=== PATIENT | male | born 1940 | race Caucasian/White ===

== ENCOUNTER → 2020-01-27 08:55 | Outpatient (BNVA) | payer MEDICARE, OTHER, SELFPAY | PROVIDERS: Family Provider Family Medicine; Referring Provider Nurse Practitioner Family; Visit Provider Specialist | DX: M25.552 Pain in left hip (principal); Z96.641 Presence of right artificial hip joint | CPT/HCPCS: 73502 ==

== ENCOUNTER 2022-05-31 19:08 | Inpatient (IN) | payer MEDICARE, OTHER, SELFPAY ==
--- NOTE | 2022-05-31 19:21 | ECG_ITS ---
[facility] Test Date: 2022-05-31 Pat Name: Chet Belle Department: Room: Gender: Male Planner Chief: : 1940 Requested By: Julio C Gilmore Order Number: [id number] Reji MD: Anil Hartman M.D. Measurements Intervals [place] Rate: 55 P: 31 NJ: 202 QRS: 65 QRSD: 86 T: 76 QT: 388 QTc: 374 Interpretive Statements SINUS BRADYCARDIA ST ELEVATION, CONSIDER ANTERIOR INJURY [MARKED ST ELEVATION W/O NORMALLY INFLECTED T-WAVE IN V2-V5] ACUTE [place] No previous ECG available for comparison Electronically Signed On 06-03-2022 17:56:15 CDT by Anil Hartman M.D. [email or web address]
--- NOTE | 2022-05-31 19:21 | W.ED.CHESTPA ---
HPI - Chest Pain General: Stated Complaint: CP Time Seen by Provider: 05/31/22 19:20 History of Present Illness: Mr. Belle is an 82-year-old gentleman without significant past medical history presents to the emergency department due to chest pain. Onset of symptoms at rest approximately 4 PM. He reports substernal pain with radiation to bilateral shoulders associated with mild nausea and cold sweats. Denies history of similar. Otherwise has been at baseline health. Intensity symptoms moderate to severe. Course has persisted. No other specific changes in health, exacerbating, or alleviating factors identified. Onset (ago): hour(s) Timing of current episode: constant Prior episodes: No Onset: during rest Pain location: substernal Pain radiation: left shoulder, left scapula, right shoulder and right scapula Severity: severe Quality: heaviness Associated symptoms: Reports diaphoresis and nausea Review of Systems General: Reports: 10 or more systems reviewed and unremarkable except in HPI and below Const: Reports: diaphoresis GI: Reports: nausea PFSH ED PFSH: Medical History (Updated 06/03/22 @ 00:01 by ) ST elevation (STEMI) myocardial infarction Surgical History History of total right hip replacement Social History Smoking and tobacco status: never smoked Alcohol intake: never Physical Exam Const: COMMON NORMALS: alert GENERAL APPEARANCE: cooperative, well developed and ill appearing (Mildly) HENMT: COMMON NORMALS: normocephalic and atraumatic HEAD & SCALP: normocephalic and atraumatic THROAT: posterior oropharynx normal Eye: COMMON NORMALS: conjunctivae normal CONJUNCTIVA: Yes conjunctivae normal SCLERA: sclerae normal Neck/C-Spine: COMMON NORMALS: supple GENERAL: Yes trachea midline Resp: COMMON NORMALS: normal respiratory effort and clear to auscultation bilaterally EFFORT & INSPECTION: Yes able to speak in complete sentences AUSCULTATION: clear to auscultation bilaterally Cardio: COMMON NORMALS: regular rate and regular rhythm RATE: regular rate RHYTHM: regular rhythm GI: COMMON NORMALS: Soft to palpation PALPATION: Yes Soft to palpation and No Tenderness to palpation present (GI) Extremity: GENERAL: Yes normal exam except as noted and No edema Neuro: COMMON NORMALS: moves all extremities SENSORIUM/ORIENTATION: Yes alert and No Orientation impaired Psych: COMMON NORMALS: mental status grossly normal and Normal thought process present THOUGHT PROCESS: Normal thought process present Course Vital Signs: Vital signs: Vital Signs Temperature 98.4 F 06/02/22 08:00 Pulse Rate 61 06/02/22 11:40 Respiratory Rate 20 H 06/02/22 11:40 Blood Pressure 132/74 06/02/22 11:40 Pulse Oximetry 92 06/02/22 11:40 MDM - Chest Pain Medical Decision Making 82-year-old gentleman without significant past medical history presenting to the emergency department with chest pain. Initial EKG with mild ST elevation though there is baseline wander. Repeat also concerning for STEMI. STEMI activation called and patient taken to Gravity Prospecting Supervisor with cardiology. STEMI orderset ordered. Medical Records I reviewed the patient's medical records. Lab Data I reviewed the patient's lab results. : 06/02/22 05:30 06/02/22 05:30 Radiology Impressions Chest X-Ray 05/31/22 23:27 IMPRESSION: Mild left basilar atelectasis. No confluent infiltrates in the lungs. Laboratory Results WBC 9.9 10^3/uL (4.0-10.0) 05/31/22 19:25 RBC 5.10 10^6/uL (4.1-5.3) 05/31/22 19:25 Hgb 15.8 g/dL (11.7-16.6) 05/31/22 19:25 Hct 46.1 % (42.0-52.0) 05/31/22 19:25 MCV 90.4 fl (80-94) 05/31/22 19:25 MCH 31.0 pg (28.0-34.0) 05/31/22 19:25 MCHC 34.3 g/dL (30.0-36.0) 05/31/22 19:25 RDW 13.2 % (12.1-15.1) 05/31/22 19:25 Plt Count 206 10^3/cmm (130-400) 05/31/22 19:25 MPV 10.6 fL (7.4-10.4) H 05/31/22 19:25 Neut % (Auto) 49.6 % 05/31/22 19:25 Lymph % (Auto) 34.3 % 05/31/22 19:25 Swisher % (Auto) 9.9 % 05/31/22 19:25 Eos % (Auto) 5.2 % 05/31/22 19:25 Baso % (Auto) 0.4 % 05/31/22 19:25 Neut # (Auto) 4.91 10^3/uL (1.8-7.7) 05/31/22 19:25 Lymph # (Auto) 3.4 10^3/uL (0.8-4.8) 05/31/22 19:25 Swisher # (Auto) 1.0 10^3/uL (0.2-0.9) H 05/31/22 19:25 Eos # (Auto) 0.5 10^3/uL (0.0-0.8) 05/31/22 19:25 Baso # (Auto) 0.0 10^3/uL (0.0-0.1) 05/31/22 19:25 Nucleated RBC % (auto) 0 % 05/31/22:25 Nucleated RBCs # 0.0 /100WBC 05/31/22 19:25 PT 13.80 SECONDS (12.1-14.9) 05/31/22 19:25 INR 1.03 (0.8-1.2) 05/31/22 19:25 APTT 29.7 SECONDS (23.9-36.7) 05/31/22 19:25 Sodium 141 mmol/L (136-145) 05/31/22 19:25 Potassium 3.5 mmol/L (3.5-5.1) 05/31/22 19:25 Chloride 103 mmol/L (98-107) 05/31/22 19:25 Carbon Dioxide 30 mmol/L (22-29) H 05/31/22 19:25 Anion Gap 11.5 (5-19) 05/31/22 19:25 BUN 25 mg/dL (8-23) H 05/31/22 19:25 Creatinine 0.7 mg/dL (0.7-1.2) 05/31/22 19:25 GFR Calculation Not Reportable 05/31/22 19:25 Glucose 160 mg/dL (65-115) H 05/31/22 19:25 Calculated Osmolality 300 mOsm/kg (285-295) H 05/31/22 19:25 Calcium 9.2 mg/dL (8.5-10.5) 05/31/22 19:25 Total Bilirubin 0.5 mg/dL (0.15-1.2) 05/31/22 19:25 AST 20 U/L (0-40) 05/31/22 19:25 ALT 16 U/L (0-41) 05/31/22 19:25 Alkaline Phosphatase 95 IU/L (40-130) 05/31/22 19:25 Troponin T Baseline 15 ng/L (0-15) 05/31/22 19:25 NT-Pro-B Natriuret Pep 97 pg/mL (0-450) 05/31/22 19:25 Total Protein 6.9 g/dL (6.6-8.7) 05/31/22 19:25 Albumin 4.2 g/dL (3.5-5.2) 05/31/22 19:25 Globulin 2.7 g/dL (1.3-4.6) 05/31/22 19:25 Lipase 25 U/L (13-60) 05/31/22 19:25 Critical Care Time Critical Care Time: Critical Care Time: Yes Total Critical Care Time: 35 Attestation: Due to a high probability of clinically significant, possibly life threatening deterioration, the patient required my highest level of attention and preparedness to intervene emergently and I personally spent this critical care time directly and personally managing the patient. This critical care time included obtaining a history; examining the patient; pulse oximetry; ordering and review of laboratory and imaging studies; arranging urgent treatment with development of a management plan; evaluation of patient's response to treatment; frequent reassessment; and, discussions with other providers as applicable. It was exclusive of separately billable procedures. Primary system involved is cardiac Discharge Plan Discharge Patient Disposition: Admitted As Inpatient Admit Provider: Anil Hartman Clinical Impression: ST elevation (STEMI) myocardial infarction Condition: Stable Discharge Diet: Cardiac Discharge Activity: Increase activity as tolerated Coding Level of Care Code ED Studio Owner for Radha Fwd Exam Comprehensive
[2022-05-31 19:23] VITALS: BP 159/86; PULSE 64; RESP 18; TEMP 36.6; O2SAT 96; BMI 25.7
[2022-05-31] MEDS: sodium chloride 0.9% 1,000 ML 999 ML IV (19:30)
[2022-05-31 19:31] LABS: Basophils % 0.4 %; Eosinophils # 0.5 10^3/uL (0.0-0.8); Eosinophils % 5.2 %; Hematocrit 46.1 % (42.0-52.0); Hemoglobin 15.8 g/dL (11.7-16.6); Lymphocytes # 3.4 10^3/uL (0.8-4.8); Lymphocytes % 34.3 %; Mean Corpuscular HGB Conc 34.3 g/dL (30.0-36.0); Mean Corpuscular Volume 90.4 fl (80-94); Mean Platelet Volume 10.6 fL (7.4-10.4); Monocytes % 9.9 %; Neutrophils # 4.91 10^3/uL (1.8-7.7); Neutrophils % 49.6 %; Nucleated Red Blood Cells % 0 %; Platelet Count 206 10^3/cmm (130-400); Red Cell Distribution Width 13.2 % (12.1-15.1); White Blood Count 9.9 10^3/uL (4.0-10.0)
[2022-05-31] MEDS: aspirin 325 mg Tablet PO (19:32)
[2022-05-31] MEDS: heparin 5,000 unit/mL INJ 1 mL 4000 UNIT IVP (19:32)
[2022-05-31] MEDS: clopidogrel 300 mg Tablet 600 MG PO (19:35)
--- NOTE | 2022-05-31 19:35 | XACV_ITS ---
Exam Room: 2 Ht: 188 cm Wt: 91 kg BSA: 2.18 m2 Gender: Male : 1940 Any Known Allergies: No known allergies Exam Priority: Routine Indication(s): - Inferior wall NH Procedure(s): Procedure Description: Diagnostic procedure Procedure Description: PCI procedure Procedure Description: Left Heart Catheterization Procedure Description: Coronary IVUS Procedure Description: Drug Eluting Coronary Stent Procedure Description: PTCA Procedure Description: Miscellaneous Procedure Description: ACT Procedure Description: Coronary Angiography Diagnostic Cath Status: Emergency Diagnostic Findings * Proximal Left Anterior Descending: total thrombotic occlusion, LACEY: 0 flow. * INDICATION: 82 year old male with no significant prior cardiac history has presented with about 3 hours of substernal chest pain. It is radiating to the shoulder blades. Says it is severe. EKG performed in the emergency room showed borderline ST elevation in anteroseptal and inferior leads. Grid Operator was emergently activated and patient brought to the Grid Operator for coronary angiogram with possible percutaneous coronary intervention. * Left Main has no significant disease. * Circumflex has no significant disease. * Mid Right Coronary Artery: Critical 99% stenosis, LACEY: 2 flow. * Coronary angiography shows right dominance. PCI Status: Emergency PCI Indication: Immediate PCI for STEMI Interventional Findings * Procedure detail: We engaged the left main artery with XB 3.0 guide catheter. IV heparin was administered to maintain ACT above 250 S. We used 0.014 run-through guidewire to cross total thrombotic occlusion of proximal LAD and was placed in the distal vessel. Proximal vessel was predilated with 2.5 x 15 mm semicompliant balloon. This was followed by placement of 3.0 x 38 mm resolute Peter drug-eluting stent. After stent deployment, thrombus extension was seen in mid vessel. A second stent was placed measuring 2.75 x 22 mm overlapping with the proximal stent. There was still haziness noted at the distal edge of the stent. It was likely dissection vs thrombus. Balloon angioplasty was performed with 2.5 x 15 mm semicompliant balloon. However it did not resolve. And a third stent measuring 2.5 x 15 mm resolute Peter drug-eluting stent. Proximal stent was postdilated with 3.25 x 12 mm NC balloon. At this time final angiogram was performed that showed excellent stent expansion, no residual stenosis and LACEY-3 flow. After scientologist of the blood flow in LAD, TETRYL DISSOLVER OPERATOR of diagonal artery was seen. Wiring was unsuccessful. However given collateral blood supply we decided to medically treated. We then turned our attention to the mid RCA stenosis. JR4 guide catheter was used to engage RCA. Run-through guidewire was used to cross critical stenosis. It was predilated with 2.5 x 15 mm noncompliant balloon. We then placed 3.5 x 22 mm resolute Peter drug-eluting stent. At this time final angiogram was performed that showed excellent stent expansion, no residual stenosis and LACEY-3 flow. Guidewire and guide catheter were removed and patient left the Grid Operator in a stable condition.. * Proximal Left Anterior Descendin% stenosis treated with a AB TREK 2.50X15 RX BALLOON, and MDT R PETER 3.0X38 CHERELLE. 0% residual stenosis, LACEY: 3 flow. * Mid Left Anterior Descendin% stenosis treated with a MDT R PETER 2.75X22 CHERELLE, and MDT NC EUPHORA RX 3.06Z61OC BALLOON. 0% residual stenosis, LACEY: 3 flow. * Distal Left Anterior Descendin% stenosis treated with a AB TREK 2.50X15 RX BALLOON, and MDT R PETER 2.5X15 CHERELLE. 0% residual stenosis, LACEY: 3 flow. * Mid Right Coronary Artery: 99% stenosis treated with a AB TREK 2.50X15 RX BALLOON, and MDT R PETER 3.5X22 CHERELLE. 0% residual stenosis, LACEY: 3 flow. Conclusions 1. Total thrombotic occlusion of proximal LAD s/p successful revascularization with CHERELLE x3. Successful revascularization of mid RCA with CHERELLE x1.. 2. Proximal Left Anterior Descending was treated with a Balloon, and Drug Eluting Stent. 3. Mid Left Anterior Descending was treated with a Drug Eluting Stent, and Balloon. 4. Distal Left Anterior Descending was treated with a Balloon, and Drug Eluting Stent. 5. Mid Right Coronary Artery was treated with a Balloon, and Drug Eluting Stent. Recommendations * Transfer to ICU. * Aspirin and Plavix for at least 1 year. * High intensity statin therapy. * Beta-marla and lisinopril. * Order echocardiogram. * Outpatient cardiology follow-up in 4-week. Interventional RX Recommendation: PCI w/o planned CABG Diagnostic RX Recommendation: PCI w/o planned CABG Anticoagulation: Heparin Pressures Phase:Rest AO : 153 / 86 ( 117 ) @ 4:15:47 PM 127 / 86 ( 106 ) @ 4:15:47 PM 110 / 70 ( 89 ) @ 4:15:47 PM 142 / 95 ( 118 ) @ 4:15:47 PM 92 / 58 ( 75 ) @ 4:15:47 PM 118 / 70 ( 90 ) @ 4:15:47 PM Clinical Evaluation EBL: 5mL-10mL Procedural Details Accurate & Complete Informed Consent: N/A Emergent; Informed Consent not obtained due to time critical life threat. Inpatient/Outpatient History & Physical on Chart: N/A Emergent; Informed Consent not obtained due to time critical life threat. If H&P is completed, is and addenduem needed: N/A Emergent; Informed Consent not obtained due to time critical life threat; If yes, is the addendum complete: N/A Emergent; Informed Consent not obtained due to time critical life threat. Visualize and Verify Site with Patient/Guarantor: N/A. Relevant Radiology Images available: N/A. Pre-op teaching completed and patient verbalized understanding. The risks, benefits, and alternatives of sedation and/or procedure were discussed by physician. The patient agrees to continue. Procedure started. [facility] Clinical Fraility Score: 3: Managing Well. Grid Operator Indications: ACS <= 24 hours. Chest Pain Symptom Assessment: Typical Angina Symptoms. Cardiovascular Instability: Yes, if yes, Persistant Ischemic Symptoms. Correct patient, site and procedure confirmed by cath team. Current diagnosis: STEMI. PERRLA. Strong, equal hand home health attendant bilaterally. Lungs clear x 5 lobes. IV Site on Arrival: 18 gauge in the right anticubital. IV Fluids: 0.9% NaCl at KVO. 200 mL infused prior to rn cardiac cath. Pre Procedural Pulses: bilateral radial was 2+. Oxygen started at 2liters/min via nasal canula. right groin was prepped with chloroprep then draped in the usual sterile fashion. right radial was prepped with chloroprep then draped in the usual sterile fashion. Physician notified. Baseline sample Acquired. HR: 65 BPM. Physician arrived. Physician scrubbed in. Immediate Pre-Procedure Time Out. Correct Patient: Yes; Correct Procedure: Yes; Correct Site: Yes; Correct Patient Position: Yes; Correct Supplies: Yes; Dried Flammable Prep: Yes; Blood Products Available: N/A;. Lidocaine 1% infiltrated to the right radial. Dada Del Cid RN, DIAPER MACHINE TENDER was relieved by Nisha Austin RN, DIAPER MACHINE TENDER as monitoring person. Arterial access obtained. A 5 equatorial guinean TIG catheter in over the standard wire. Standard wire out, exchange glidewire in. Multiple views taken of left coronary artery. Catheter removed over the exchange wire. 6 equatorial guinean XB 3.5 guide catheter was inserted over the wire. Runthrough guidewire was advanced through the guide catheter to lesion in the prox LAD. Inflation number : 1 A AB TREK 2.50X15 RX BALLOON was prepped and advanced across the Prox LAD , then inflated to 12 LAURIE for 0:18 seconds. Inflation number: 2 The AB TREK 2.50X15 RX BALLOON was reinflated across the Prox LAD, to 12 LAURIE for 0:12 seconds. Current Diagnosis : STEMI. Balloon out. Results checked. Inflation Number : 3 A VIKY Flores PETER 3.0X38 CHERELLE -Lot Number# [id number] was prepped and advanced across the Prox LAD. The stent was deployed at 12 LAURIE for 0:25 seconds. Exp. 2025-01-19. Stent balloon out over wire. Results checked. Inflation Number : 1 A MDT R PETER 2.75X22 CHERELLE -Lot Number# [id number] prepped and advanced across the Mid LAD. The stent was deployed at 12 LAURIE for 0:27 seconds. Exp. 2024-10-25. Stent balloon out over wire. Results checked. [place] guidewire was advanced through the guide catheter to lesion in the mid LAD. PCI Indication : Immediate PCI for STEMI. [place] wire out. IVUS Catheter in. IVUS performed. ACT drawn. Results 257 seconds. Therapeutic limits - pre-heparin administration 90-150 seconds and monitoring heparin during a vascular procedure >250 seconds. IVUS catherer out. Industrial Maintenance Mechanic 50 guidewire was advanced through the guide catheter to lesion in the mid LAD. Industrial Maintenance Mechanic 50 guidewire out. Inflation number : 2 A MDT NC EUPHORA RX 3.99M62AU BALLOON was prepped and advanced across the Mid LAD , then inflated to 12 LAURIE for 0:09 seconds. Inflation number: 3 The MDT NC EUPHORA RX 3.12H95VO BALLOON was reinflated across the Mid LAD, to 12 LAURIE for 0:22 seconds. Inflation number: 4 The MDT NC EUPHORA RX 3.23K83AW BALLOON was reinflated across the Mid LAD, to 14 LAURIE for 0:15 seconds. Balloon out. Results checked. Inflation number : 1 A AB TREK 2.50X15 RX BALLOON was prepped and advanced across the Dist LAD , then inflated to 8 LAURIE for 0:10 seconds. Balloon out. Results checked. Runthrough guidewire pulled back, cine performed. Inflation Number : 2 A MDT R PETER 2.5X15 CHERELLE -Lot Number# [id number] was prepped and advanced across the Dist LAD. The stent was deployed at 12 LAURIE for 0:28 seconds. Exp.. Stent balloon out over wire. Runthrough guidewire pulled back, cine performed. Wire out. Guide catheter out over the exchange glidewire. A 5 equatorial guinean TIG catheter in over the exchange glidewire. Cine of the LCA performed. Catheter redirected to the RCA. Multiple views taken of right coronary artery. 6 equatorial guinean JR 4 guide catheter was inserted over the wire. [place] guidewire was advanced through the guide catheter to lesion in the mid RCA. Inflation number : 1 A AB TREK 2.50X15 RX BALLOON was prepped and advanced across the Mid RCA , then inflated to 12 LAURIE for 0:22 seconds. Balloon out. Inflation Number : 2 A VIKY Flores PETER 3.5X22 CHERELLE -Lot Number# [id number] was prepped and advanced across the Mid RCA. The stent was deployed at 12 LAURIE for 0:29 seconds. Exp. 2024-11-22. Stent balloon out over wire. Results checked. Wire out. Guide catheter out. Dr. Hartman scrubbed out. ACT drawn. Results 249 seconds. Therapeutic limits - pre-heparin administration 90-150 seconds and monitoring heparin during a vascular procedure >250 seconds. A TR Band was successful obtaining hemostatsis at the Right Radial artery insertion site. TR band placed. Hemostasis obtained. Post Procedure: Pulses reassessed and unchanged. PERRLA. Strong, equal hand home health attendant bilaterally. No VTE prophylaxis required. Complications: none. Post-op diagnosis: PCI of the Prox, Mid, Distal LAD, and Mid RCA. Medication's Wasted: Lidocaine 1% = 6 mL. Medication's Wasted: Nitro = 49.4 mg. Medication's Wasted: Heparin = 4000 units. Total IV fluids: 52 mL. PCI Indication: STEMI. Estimated blood loss: 5mL-10mL. Responsiveness - Normal response to verbal stimuli; alert and oriented, PERRLA. Airway - Unaffected, no intervention required; spontaneous ventilation. Circulation: W/N/L, pulses unchanged. Nausea/Vomiting: No. Procedure completed. Patient transferred by bed to ICU. Vital chart was stopped. Access Site Site: Right Radial artery Sheath Size: 6 Fr Hemostasis Method: TR Band Hemostasis Success: Successful Procedure Medications Start: 7:52 PM Stop: 7:52 PM Medication: Versed Amount: 1 mg Route: I.V. Start: 7:52 PM Stop: 7:52 PM Medication: Fentanyl Amount: 50 mcg Route: I.V. Start: 7:55 PM Stop: 7:55 PM Medication: Heparin Amount: 5000 units Route: I.V. Start: 8:07 PM Stop: 8:07 PM Medication: Versed Amount: 1 mg Route: I.V. Start: 8:08 PM Stop: 8:08 PM Medication: Versed Amount: 1 mg Route: I.V. Start: 8:15 PM Stop: 8:15 PM Medication: Fentanyl Amount: 50 mcg Route: I.V. Start: 8:18 PM Stop: 8:18 PM Medication: Heparin Amount: 1000 units Route: I.V. Start: 8:27 PM Stop: 8:27 PM Medication: Versed Amount: 1 mg Route: I.V. Start: 8:28 PM Stop: 8:28 PM Medication: Heparin Amount: 2000 units Route: I.V. Start: 8:33 PM Stop: 8:33 PM Medication: Aggrastat 12.5 mg/250 mL Amount: 45 ml Route: I.V. bolus Start: 8:33 PM Stop: 8:33 PM Medication: Aggrastat 12.5 mg/250 mL Amount: 16.4 ml/hr Route: I.V. bolus Start: 8:34 PM Stop: 8:34 PM Medication: Fentanyl Amount: 50 mcg Route: I.V. Start: 8:36 PM Stop: 8:36 PM Medication: Nitrogylcerin Amount: 200 mcg Route: I.C. Start: 8:42 PM Stop: 8:42 PM Medication: Versed Amount: 1 mg Route: I.V. Start: 8:55 PM Stop: 8:55 PM Medication: Heparin Amount: 2000 units Route: I.V. Start: 9:00 PM Stop: 9:00 PM Medication: Nitrogylcerin Amount: 200 mcg Route: I.C. Start: 9:03 PM Stop: 9:03 PM Medication: Nitrogylcerin Amount: 200 mcg Route: I.C. Start: 9:08 PM Stop: 9:08 PM Medication: Heparin Amount: 2000 units Route: I.V. I, the attending physician, have reviewed and verified all procedure medications. Yes, all medications given per verbal order History/Risk Factors Hypertension: No Dyslipidemia: No Peripheral Arterial Disease (PAD): No Myocardial Infarction (NH): No Obesity: No Renal Disease: No Tobacco Use: Never Prior Interventions PCI: No CABG: No Valve Surgery: No Report Signatures Finalized by Anil Hartman MD on 06/11/2022 11:21 AM
--- NOTE | 2022-05-31 19:40 | PC.NURSE ---
patient left ER for director of cardiac cath lab 1938.
--- NOTE | 2022-05-31 19:45 | PM.HP ---
Providers/Chief Complaint Admitting Physician: Anil Hartman MD Chief Complaint: CP History of Present Illness Chet Belle is a 82 year old male with no significant prior cardiac history has presented with about 3 hours of substernal chest pain. It is radiating to the shoulder blades. Says it is severe. EKG performed in the emergency room showed borderline ST elevation in anteroseptal and inferior leads. Payroll Services Analyst was emergently activated and patient brought to the Payroll Services Analyst for coronary angiogram with possible percutaneous coronary intervention. He has proximal LAD was occluded. He underwent successful revascularization with CHERELLE x3. RCA had mid vessel critical 99% stenosis and had PCI with CHERELLE x1. Patient left the Payroll Services Analyst in a stable condition. Review of Systems General: Reports: 10 or more systems reviewed and unremarkable except in HPI and below Narrative: CONSTITUTIONAL: No fever chills weight loss or gain or night sweats. [] HEENT: Normocephalic, atraumatic.[] RESPIRATORY: No cough, sputum, hemoptysis or wheezing.[] CARDIOVASCULAR: Has chest pain and shortness of breath. GI: no nausea vomiting diarrhea. [] STAFF PSYCHIATRIST: No numbness, tingling, weakness or loss of function in any part of the body. [] MUSCULOSKELETAL: No knee or joint pain or rashes. [] Medications/Allergies Home Medications Medication Instructions Recorded Confirmed Last Taken Type omeprazole 20 mg capsule,delayed 20 mg PO DAILY 01/27/20 01/27/20 Unknown History release sulindac 150 mg tablet 150 mg PO BID 01/27/20 01/27/20 Unknown History tramadol 50 mg tablet 50 mg PO Q8H PRN 01/27/20 01/27/20 Unknown History Allergies Allergy/AdvReac Type Severity Reaction Status Date / Time No Known Allergies Allergy Unverified 01/27/20 08:48 PFSH Acute PFSH: Surgical History History of total right hip replacement Social History Smoking and tobacco status: never smoked Alcohol intake: never Vitals/I&O/Wt Last Vital Signs Temp 97.8 F 05/31/22 19:23 Pulse 64 05/31/22 19:23 Resp 18 05/31/22 19:23 BP 159/86 05/31/22 19:23 Pulse Ox 96 05/31/22 19:23 Weight last 48 hrs Weight 200 lb Physical Exam Narrative: GENERAL: Patient is alert, awake and oriented x3. [] NECK: No jugular vein distension. [] HEENT: No cyanosis. No icterus. No pallor. [] HEART: Regular S1 and S2. No murmur, rub or gallop. [] LUNGS: Clear to auscultate bilaterally. [] ABDOMEN: Soft, nontender and nondistended. Positive bowel sounds. No guarding, rebound or tenderness. [] CENTRAL NERVOUS SYSTEM: Grossly nonfocal. [] EXTREMITIES: Lower extremities with no edema bilaterally. Pulses palpable in the lower extremities, both dorsalis pedis and posterior tibial. [] Data : 05/31/22 19:25 05/31/22 19:25 A&P Assessment and plan (1) ST elevation (STEMI) myocardial infarction: Status: Acute Plan Patient presented with acute ST elevation [place] with ST elevation seen in anterolateral and inferior leads. He was emergently taken to CHERELLE x3. There were long lesions and extension of blood clot. Mid RCA had a critical 99% stenosis that underwent successful revascularization with CHERELLE x1. Continue dual antiplatelet therapy with aspirin and Plavix for at least 1 year. High intensity statin therapy. Continue Aggrastat drip for 4 hours. Order echocardiogram. IV fluids at 75 cc an hour for 8 hours. We will initiate low-dose beta-marla and lisinopril. Attestations Medical Necessity Statement*: Care expected to cross 2 midnights. Patient has presented with ST elevation WA. Coding Level of Care Code Acute Unix Systems Administrator for Radha Sanz Diagnoses ST elevation (STEMI) myocardial infarction I21.3
[2022-05-31 19:48] LABS: INR 1.03 (0.8-1.2)
[2022-05-31 19:49] LABS: Partial Thromboplastin Time 29.7 SECONDS (23.9-36.7)
[2022-05-31 19:51] LABS: Troponin(5th) Baseline 15 ng/L (0-15)
[2022-05-31 19:59] LABS: Alanine Aminotransferase 16 U/L (0-41); Albumin Level 4.2 g/dL (3.5-5.2); Alkaline Phosphatase 95 IU/L (40-130); Anion Gap 11.5 (5-19); Aspartate Amino Transferase 20 U/L (0-40); Blood Urea Nitrogen 25 mg/dL (8-23); Calcium 9.2 mg/dL (8.5-10.5); Carbon Dioxide 30 mmol/L (22-29); Chloride 103 mmol/L (98-107); Globulin 2.7 g/dL (1.3-4.6); Glucose 160 mg/dL (65-115); Lipase 25 U/L (13-60); NT Pro B Type Natriuretic Pept 97 pg/mL (0-450); Osmolality Calculated 300 mOsm/kg (285-295); Potassium 3.5 mmol/L (3.5-5.1); Sodium 141 mmol/L (136-145); Total Bilirubin 0.5 mg/dL (0.15-1.2); Total Protein 6.9 g/dL (6.6-8.7)
--- NOTE | 2022-05-31 21:21 | ECG_ITS ---
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 Measurements Intervals [place] Rate: 56 P: 27 TX: 199 QRS: 2 QRSD: 106 T: 52 QT: 421 QTc: 408 Interpretive Statements SINUS BRADYCARDIA WITH OCCASIONAL VENTRICULAR PREMATURE COMPLEXES POSSIBLE ANTERIOR MYOCARDIAL INFARCTION , OF INDETERMINATE AGE [30 ms Q WAVE IN V3/V4, OR R < 0.2 mV IN V4] INFERIOR MYOCARDIAL INFARCTION , PROBABLY OLD [40+ ms Q WAVE AND/OR ST/T ABNORMALITY IN II/aVF] Compared to ECG 05/31/2022 19:19:23 Ventricular premature complex(es) now present ST (T wave) deviation no longer present Myocardial infarct finding still present Electronically Signed On 06-03-2022 18:19:28 CDT by Anil Hartman M.D. [email or web address].[employer]/store/[id number]
[2022-05-31 21:28] VITALS: PULSE 60; TEMP 36.9
[2022-05-31 22:00] VITALS: PULSE 60
[2022-05-31] MEDS: atorvastatin 40 mg Tablet PO (22:14)
[2022-05-31] MEDS: metoprolol tartrate 25 mg Tablet PO (22:14)
[2022-05-31] MEDS: TRAMadol 50 mg Tablet PO (22:37)
[2022-05-31] MEDS: temazepam 15 mg Capsule PO (22:37)
--- NOTE | 2022-05-31 23:27 | XRR_ITS ---
PROCEDURE INFORMATION: Exam: XR Chest Exam date and time: 06/01/2022 2:50 AM Age: 82 years old Clinical indication: Pain; Angina pectoris; Additional info: Stemi TECHNIQUE: Imaging protocol: Radiologic exam of the chest. Views: 1 view. COMPARISON: No relevant prior studies available. FINDINGS: Lungs: There are normal lung volumes without airspace opacities. Mild left basilar atelectasis is seen. Age-related interstitial prominence is seen in the lungs. Pleural spaces: There are no pleural effusions or pneumothorax. Heart/Mediastinum: The heart size is normal. There is a mildly tortuous thoracic aorta. The trachea is in the midline. Bones/joints: No acute abnormalities. Mild bilateral shoulder degenerative changes are seen. Soft tissues: Multiple external densities are seen overlying the chest, limiting assessment. XR/XR chest 1V portable [id number] IMPRESSION: Mild left basilar atelectasis. No confluent infiltrates in the lungs.
[2022-06-01] VITALS (56 sets, daily range): BP systolic 94–131; BP diastolic 51–92; PULSE 56–92; RESP 8–27; O2SAT 87–98
--- NOTE | 2022-06-01 01:21 | ECG_ITS ---
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 Measurements Intervals [place] Rate: 60 P: -8 PA: 202 QRS: -18 QRSD: 97 T: 76 QT: 391 QTc: 391 Interpretive Statements SINUS RHYTHM POSSIBLE ANTERIOR MYOCARDIAL INFARCTION , OF INDETERMINATE AGE [30 ms Q WAVE IN V3/V4, OR R < 0.2 mV IN V4] INFERIOR MYOCARDIAL INFARCTION , PROBABLY OLD [40+ ms Q WAVE AND/OR ST/T ABNORMALITY IN II/aVF] Compared to ECG 05/31/2022 21:59:58 Sinus bradycardia no longer present Ventricular premature complex(es) no longer present Myocardial infarct finding still present Electronically Signed On 06-03-2022 18:18:29 CDT by Anil Hartman M.D. [email or web address].[employer]/store/[id number]
[2022-06-01] MEDS: nitroglycerin 0.4 mg sublingual Tablet SUBLINGUAL ×2 (01:32→04:41)
[2022-06-01 01:55] LABS: Basophils % 0.2 %; Eosinophils % 0.2 %; Hematocrit 41.2 % (42.0-52.0); Hemoglobin 14.4 g/dL (11.7-16.6); Lymphocytes # 1.4 10^3/uL (0.8-4.8); Lymphocytes % 12.2 %; Mean Corpuscular Hemoglobin 31.2 pg (28.0-34.0); Mean Corpuscular Volume 89.2 fl (80-94); Mean Platelet Volume 10.6 fL (7.4-10.4); Monocytes # 0.5 10^3/uL (0.2-0.9); Monocytes % 4.3 %; Neutrophils # 9.44 10^3/uL (1.8-7.7); Neutrophils % 82.7 %; Nucleated Red Blood Cells % 0 %; Platelet Count 191 10^3/cmm (130-400); Red Blood Count 4.62 10^6/uL (4.1-5.3); Red Cell Distribution Width 13.2 % (12.1-15.1); White Blood Count 11.4 10^3/uL (4.0-10.0)
[2022-06-01 02:38] LABS: Anion Gap 14.9 (5-19); Carbon Dioxide 25 mmol/L (22-29); Chloride 102 mmol/L (98-107); Potassium 3.9 mmol/L (3.5-5.1); Sodium 138 mmol/L (136-145)
[2022-06-01 02:55] LABS: Blood Urea Nitrogen 24 mg/dL (8-23); Calcium 8.8 mg/dL (8.5-10.5); Glucose 129 mg/dL (65-115); Osmolality Calculated 292 mOsm/kg (285-295)
[2022-06-01 02:59] LABS: Troponin 5 6HR 2026 ng/L (0-15); Troponin 5 6HR Delta 2011 ng/L (0-12)
--- NOTE | 2022-06-01 04:38 | ECG_ITS ---
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 Measurements Intervals [place] Rate: 83 P: 5 [place]: 204 QRS: -17 QRSD: 96 T: 68 QT: 352 QTc: 415 Interpretive Statements SINUS RHYTHM POSSIBLE ANTERIOR MYOCARDIAL INFARCTION , OF INDETERMINATE AGE [30 ms Q WAVE IN V3/V4, OR R < 0.2 mV IN V4] INFERIOR MYOCARDIAL INFARCTION , PROBABLY OLD [40+ ms Q WAVE AND/OR ST/T ABNORMALITY IN II/aVF] WARNING: DATA QUALITY MAY AFFECT INTERPRETATION Compared to ECG 06/01/2022 01:19:46 No significant changes Electronically Signed On 06-03-2022 17:54:39 CDT by Anil Hartman M.D. [email or web address] [facility].[employer]/store/OM/[id number]
[2022-06-01] MEDS: acetaminophen 325 mg Tablet 650 MG PO ×2 (04:40→22:37)
--- NOTE | 2022-06-01 06:00 | PC.NURSE ---
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 Plan of care discussed, answered all questions. Has complained of intermittent chest pressure. EKG x2 done, Nitro given . Dr Hartman aware . Critical Troponin , called Dr Hartman, voicemail not set up
[2022-06-01] MEDS: aspirin 81 mg EC Tablet PO (09:02)
[2022-06-01] MEDS: metoprolol tartrate 25 mg Tablet PO ×2 (09:02→20:44)
[2022-06-01] MEDS: clopidogrel 75 mg Tablet PO (09:02)
[2022-06-01] MEDS: lisinopril 5 mg Tablet PO (10:42)
--- NOTE | 2022-06-01 11:17 | P.PN_ITS ---
Subjective Subjective: Patient is doing well. No complaints of chest pain or shortness of breath. Vitals/I&O/Wt Last Vital Signs Temp 98.4 F 05/31/22 21:28 Pulse 60 06/01/22 05:40 Resp 18 05/31/22 19:23 BP 159/86 05/31/22 19:23 Pulse Ox 96 05/31/22 19:23 05/31/22 06/01/22 06/01/22 22:59 06:59 14:59 Intake Total 500 / 500 222 / 222 Output Total 800 / 800 Balance -300 / -300 222 / 222 Weight last 48 hrs Weight 200 lb Physical Exam Narrative: GENERAL: Patient is alert, awake and oriented x3. [] NECK: No jugular vein distension. [] HEENT: No cyanosis. No icterus. No pallor. [] HEART: Regular S1 and S2. No murmur, rub or gallop. [] LUNGS: Clear to auscultate bilaterally. [] ABDOMEN: Soft, nontender and nondistended. Positive bowel sounds. No guarding, rebound or tenderness. [] CENTRAL NERVOUS SYSTEM: Grossly nonfocal. [] EXTREMITIES: Lower extremities with no edema bilaterally. Pulses palpable in the lower extremities, both dorsalis pedis and posterior tibial. [] Data : 06/01/22 01:45 06/01/22 01:45 A&P Assessment and plan (1) ST elevation (STEMI) myocardial infarction: Status: Acute Plan Patient presented with acute ST elevation [place] with ST elevation seen in anterolateral and inferior leads. He was emergently taken to CHERELLE x3. There were long lesions and extension of blood clot. Mid RCA had a critical 99% stenosis that underwent successful revascularization with CHERELLE x1. Continue aspirin and Plavix for at least 1 year High intensity statin therapy. Echocardiogram reveals moderately reduced LV systolic function with EF of 35 to 40%. Continue metoprolol and lisinopril. Attestations Medical Necessity Statement*: Care expected to cross 2 midnights. Coding Level of Care Code Acute Certified Credit Counselor for Radha Sanz Diagnoses ST elevation (STEMI) myocardial infarction I21.3
--- NOTE | 2022-06-01 16:33 | PC.NURSE ---
Home medications: New bottle of Timolol solution, New bottle of bimatoprost. Bottle of Tramadol with 67 50mg tablets.
--- NOTE | 2022-06-01 16:40 | ECG_ITS ---
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 Measurements Intervals [place] Rate: 68 P: -1 RI: 188 QRS: -25 QRSD: 100 T: 106 QT: 429 QTc: 457 Interpretive Statements SINUS RHYTHM WITH OCCASIONAL SUPRAVENTRICULAR PREMATURE COMPLEXES ANTERIOR MYOCARDIAL INFARCTION , PROBABLY RECENT [40+ ms Q WAVE AND/OR ST/T ABNORMALITY IN V3/V4] INFERIOR MYOCARDIAL INFARCTION , OF INDETERMINATE AGE [40+ ms Q WAVE AND/OR ST/T ABNORMALITY IN II/aVF] ACUTE MT Compared to ECG 06/01/2022 04:46:34 No significant changes Electronically Signed On 06-03-2022 18:16:36 CDT by Anil Hartman M.D. [email or web address]I Pharmaselect [facility].Dctio/store/[id number]
[2022-06-01] MEDS: ondansetron 2 mg/ML SDV 2 mL 4 MG IVP (17:01)
[2022-06-01] MEDS: atorvastatin 40 mg Tablet PO (20:44)
--- NOTE | 2022-06-01 21:31 | USCV_ITS ---
Chet Belle Age: 82 Gender: M : 1940 Exam Date: 06/01/2022 00:37 Ordering Phys: Anil Hartman M.D ([email or web address]) Technologist: Dinesh Mckeon Exam Location: [place] Indication: post stemi BP: 159 / 86 HR: 63 Rhythm: Sinus Technical Quality: Adequate MEASUREMENTS (Male / Female) Normal Values 2D ECHO LV Diastolic Diameter PLAX 4.0 cm 4.2 - 5.9 / 3.9 - 5.3 cm LV Systolic Diameter PLAX 2.7 cm IVS Diastolic Thickness 1.9 cm 0.6 - 1.0 / 0.6 - 0.9 cm IVS Systolic Thickness 2.1 cm LVPW Diastolic Thickness 1.9 cm 0.6 - 1.0 / 0.6 - 0.9 cm LVPW Systolic Thickness 2.4 cm LVOT Diameter 2.0 cm LV Ejection Fraction 2D Teich 49.2 % LV Ejection Fraction MOD 2C 42.6 % LV Ejection Fraction 2C AL 43.5 % LA Diameter 3.2 cm LA Width 5.0 cm LA Height 3.5 cm RA Width 4.0 cm RA Height 4.6 cm Aorta at Sinotubular Diameter 2.4 cm IVC Diameter 2.6 cm M-MODE Aortic Annulus Diameter 3.4 cm LA Ao Ratio MM 1.0 MV E Point Septal Separation 0.7 cm DOPPLER AV Peak Velocity 93.8 cm/s LVOT Peak Velocity 63.0 cm/s AV Area Cont Eq vti 2.8 cm squared AV Area Cont Eq pk 2.2 cm squared MV Area PHT 3.3 cm squared Mitral E to A Ratio 0.7 MV E' Velocity 32.5 cm/s Mitral E to MV E' Ratio 10.6 Mitral E to LV E' Lateral Ratio 9.6 Mitral E to LV E' Septal Ratio 11.9 TR Peak Velocity 135.6 cm/s TR Peak Gradient 7.4 mmHg TR Mean Velocity 99.5 cm/s TR Mean Gradient 4.3 mmHg TR Velocity Time Integral 30.7 cm Right Atrial Pressure 3.0 mmHg Pulmonary Artery Systolic Pressu 10.4 mmHg PV Peak Velocity 78.0 cm/s FINDINGS Left Ventricle Normal left ventricular size. LV systolic function is mildly reduced with EF of 40-45%. Severe hypokinesis of inferoseptal and anteroseptal briones. Moderate hypokinesis of apical wall. Grade 1 diastolic dysfunction Right Ventricle The right ventricle is normal in size and function. Right Atrium The right atrium is normal in size. Left Atrium The left atrium is normal in size. Mitral Valve Structurally normal mitral valve without significant stenosis or prolapse. There is trace mitral regurgitation. Aortic Valve Thickened aortic valve without significant stenosis. There is moderate aortic regurgitation. Tricuspid Valve Structurally normal tricuspid valve without significant stenosis. Mild tricuspid regurgitation. Pulmonary artery systolic pressure is normal. Pulmonic Valve Trace pulmonic regurgitation Pericardium Normal pericardium without effusion. Aorta Normal ascending aorta dimension. IVC CONCLUSIONS LV systolic function is mildly reduced with EF of 40 to 45%. Above-mentioned regional wall motion abnormalities. Grade 1 diastolic dysfunction Trace mitral regurgitation Moderate aortic regurgitation Mild tricuspid regurgitation. Trace pulmonic regurgitation. No comparison studies are available Anil Hartman MD (Electronically Signed) Final Date: 11 June 2022 08:47 S
[2022-06-02] VITALS (19 sets, daily range): BP systolic 98–139; BP diastolic 65–88; PULSE 58–68; RESP 6–20; TEMP 36.9; O2SAT 89–95
[2022-06-02 06:10] LABS: Basophils % 0.2 %; Eosinophils # 0.4 10^3/uL (0.0-0.8); Eosinophils % 3.7 %; Hematocrit 41.9 % (42.0-52.0); Hemoglobin 14.3 g/dL (11.7-16.6); Lymphocytes # 1.6 10^3/uL (0.8-4.8); Lymphocytes % 17.1 %; Mean Corpuscular HGB Conc 34.1 g/dL (30.0-36.0); Mean Corpuscular Hemoglobin 31.2 pg (28.0-34.0); Mean Corpuscular Volume 91.3 fl (80-94); Mean Platelet Volume 10.9 fL (7.4-10.4); Monocytes % 10.6 %; Neutrophils # 6.46 10^3/uL (1.8-7.7); Nucleated Red Blood Cells % 0 %; Platelet Count 171 10^3/cmm (130-400); Red Blood Count 4.59 10^6/uL (4.1-5.3); Red Cell Distribution Width 13.7 % (12.1-15.1); White Blood Count 9.5 10^3/uL (4.0-10.0)
[2022-06-02 06:38] LABS: Anion Gap 9.9 (5-19); Blood Urea Nitrogen 22 mg/dL (8-23); Calcium 8.7 mg/dL (8.5-10.5); Carbon Dioxide 30 mmol/L (22-29); Chloride 105 mmol/L (98-107); Glucose 108 mg/dL (65-115); Osmolality Calculated 296 mOsm/kg (285-295); Potassium 3.9 mmol/L (3.5-5.1); Sodium 141 mmol/L (136-145)
--- NOTE | 2022-06-02 07:00 | PC.NURSE ---
Bedside report completed with RADHA Pagan
[2022-06-02] MEDS: lisinopril 5 mg Tablet PO (08:25)
[2022-06-02] MEDS: clopidogrel 75 mg Tablet PO (08:25)
[2022-06-02] MEDS: metoprolol tartrate 25 mg Tablet PO (08:25)
[2022-06-02] MEDS: aspirin 81 mg EC Tablet PO (08:25)
--- NOTE | 2022-06-02 09:36 | P.DS_ITS ---
Discharge Providers Date of Admission: 05/31/22 21:57 Date of Discharge: June 02, 2022 Attending Provider at Admission: Anil Hartman M.D Attending Provider at Discharge: Anil Hartman M.D Diagnoses at Discharge Discharge Diagnosis (1) ST elevation (STEMI) myocardial infarction: Reason for Visit Reason for Visit: Chest pain/ STEMI Brief History: 82 year old male with no significant prior cardiac history has presented with about 3 hours of substernal chest pain.? It is radiating to the shoulder blades.? Says it is severe.? EKG performed in the emergency room showed borderline ST elevation in anteroseptal and inferior leads.? Blood Donor Recruiter Supervisor was emergently activated and patient brought to the Blood Donor Recruiter Supervisor for coronary angiogram with possible percutaneous coronary intervention.?? Hospital Course Hospital Course 82 year old male with no significant prior cardiac history has presented with about 3 hours of substernal chest pain.? It is radiating to the shoulder blades.? Says it is severe.? EKG performed in the emergency room showed borderline ST elevation in anteroseptal and inferior leads.? Blood Donor Recruiter Supervisor was emergently activated and patient brought to the Blood Donor Recruiter Supervisor for coronary angiogram with possible percutaneous coronary intervention. Patient had coronary angiogram performed that showed total thrombotic occlusion of proximal LAD. He underwent successful revascularization with CHERELLE x3. RCA had mid to critical 99% stenosis. Patient had revascularization with CHERELLE x1. He stayed in the hospital and was stable. Echocardiogram showed mild LV dysfunction. He was discharged home in stable condition. Physical Exam Narrative: GENERAL: Patient is alert, awake and oriented x3. [] NECK: No jugular vein distension. [] HEENT: No cyanosis. No icterus. No pallor. [] HEART: Regular S1 and S2. No murmur, rub or gallop. [] LUNGS: Clear to auscultate bilaterally. [] ABDOMEN: Soft, nontender and nondistended. Positive bowel sounds. No guarding, rebound or tenderness. [] CENTRAL NERVOUS SYSTEM: Grossly nonfocal. [] EXTREMITIES: Lower extremities with no edema bilaterally. Pulses palpable in the lower extremities, both dorsalis pedis and posterior tibial. 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 echo complete* [id number] Routine Ultrasound 06/01/22 21:31 Taken Radiology Impressions Chest X-Ray 05/31/22 23:27 IMPRESSION: Mild left basilar atelectasis. No confluent infiltrates in the lungs. Laboratory Results WBC 9.5 10^3/uL (4.0-10.0) 06/02/22 05:30 RBC 4.59 10^6/uL (4.1-5.3) 06/02/22 05:30 Hgb 14.3 g/dL (11.7-16.6) 06/02/22 05:30 Hct 41.9 % (42.0-52.0) L 06/02/22 05:30 MCV 91.3 fl (80-94) 06/02/22 05:30 MCH 31.2 pg (28.0-34.0) 06/02/22 05:30 MCHC 34.1 g/dL (30.0-36.0) 06/02/22 05:30 RDW 13.7 % (12.1-15.1) 06/02/22 05:30 Plt Count 171 10^3/cmm (130-400) 06/02/22 05:30 MPV 10.9 fL (7.4-10.4) H 06/02/22 05:30 Neut % (Auto) 68.0 % 06/02/22 05:30 Lymph % (Auto) 17.1 % 06/02/22 05:30 [place] % (Auto) 10.6 % 06/02/22 05:30 Eos % (Auto) 3.7 % 06/02/22 05:30 Baso % (Auto) 0.2 % 06/02/22 05:30 Neut # (Auto) 6.46 10^3/uL (1.8-7.7) 06/02/22 05:30 Lymph # (Auto) 1.6 10^3/uL (0.8-4.8) 06/02/22 05:30 [place] # (Auto) 1.0 10^3/uL (0.2-0.9) H 06/02/22 05:30 Eos # (Auto) 0.4 10^3/uL (0.0-0.8) 06/02/22 05:30 Baso # (Auto) 0.0 10^3/uL (0.0-0.1) 06/02/22 05:30 Nucleated RBC % (auto) 0 % 06/02/22 05:30 Nucleated RBCs # 0.0 /100WBC 06/02/22 05:30 PT 13.80 SECONDS (12.1-14.9) 05/31/22 19:25 INR 1.03 (0.8-1.2) 05/31/22 19:25 APTT 29.7 SECONDS (23.9-36.7) 05/31/22 19:25 Sodium 141 mmol/L (136-145) 06/02/22 05:30 Potassium 3.9 mmol/L (3.5-5.1) 06/02/22 05:30 Chloride 105 mmol/L (98-107) 06/02/22 05:30 Carbon Dioxide 30 mmol/L (22-29) H 06/02/22 05:30 Anion Gap 9.9 (5-19) 06/02/22 05:30 BUN 22 mg/dL (8-23) 06/02/22 05:30 Creatinine 0.7 mg/dL (0.7-1.2) 06/02/22 05:30 GFR Calculation Not Reportable 06/02/22 05:30 Glucose 108 mg/dL (65-115) 06/02/22 05:30 Calculated Osmolality 296 mOsm/kg (285-295) H 06/02/22 05:30 Calcium 8.7 mg/dL (8.5-10.5) 06/02/22 05:30 Total Bilirubin 0.5 mg/dL (0.15-1.2) 05/31/22 19:25 AST 20 U/L (0-40) 05/31/22 19:25 ALT 16 U/L (0-41) 05/31/22 19:25 Alkaline Phosphatase 95 IU/L (40-130) 05/31/22 19:25 Troponin T Baseline 15 ng/L (0-15) 05/31/22 19:25 Troponin T Hi Sens 6Hr 2026 ng/L (0-15) H 06/01/22 01:45 Troponin T Hi Sens 6Hr Delta 2011 ng/L (0-12) H* 06/01/22 01:45 NT-Pro-B Natriuret Pep 97 pg/mL (0-450) 05/31/22 19:25 Total Protein 6.9 g/dL (6.6-8.7) 05/31/22 19:25 Albumin 4.2 g/dL (3.5-5.2) 05/31/22 19:25 Globulin 2.7 g/dL (1.3-4.6) 05/31/22 19:25 Lipase 25 U/L (13-60) 05/31/22 19:25 Vitals Last Vital Signs Temp 98.4 F 05/31/22 21:28 Pulse 60 06/02/22 06:00 Resp 16 06/02/22 02:45 BP 122/66 06/02/22 02:45 Pulse Ox 94 06/02/22 02:45 Discharge Plan Discharge Patient Disposition: Home Condition: Stable Prescriptions: New atorvastatin 40 mg Tablet 40 mg PO BEDTIME Qty: 90 3RF clopidogrel 75 mg Tablet 75 mg PO DAILY Qty: 90 0RF aspirin 81 mg Tablet,Delayed Release (Dr/Ec) 81 mg PO DAILY Qty: 90 3RF lisinopril 5 mg Tablet 5 mg PO DAILY Qty: 90 0RF nitroglycerin 0.4 mg Tablet, Sublingual 0.4 mg sublingual Q5M PRN (Reason: Chest Pain) Qty: 30 0RF metoprolol tartrate 25 mg Tablet 25 mg PO BID@0900,2100 Qty: 120 2RF Continued tramadol 50 mg tablet 50 mg PO Q8H PRN (Reason: Pain) 0RF timolol maleate 0.5 % drops 1 drp ophthalmic (eye) DAILY 0RF Lumigan 0.01 % drops 1 drp ophthalmic (eye) BEDTIME 0RF Discontinued sulindac 150 mg tablet 150 mg PO BID 0RF Discharge Orders: Discharge Order (Routine); Ordered 06/02/22 Ordered By: Anil Hartman Referrals: Anil Hartman M.D [Physician] - 1 month Treva Singh FNP [Nurse Practitioner] - 7-10 days Discharge Diet: Cardiac Discharge Activity: Increase activity as tolerated Patient Instructions: Metoprolol (By mouth), Lisinopril (By mouth), Aspirin (By mouth), Nitroglycerin, Rapid Release (By mouth) (NitroMist, Nitrolingual,..., Atorvastatin (By mouth) (Lipitor), Clopidogrel (By mouth) (Plavix), Heart Attack (DC), Opioid Safety Activity Restrictions/Additional Instructions: Please do not lift more than 5 pounds of weight for the next 5 days Discharge Attestations Time Spent in Discharge Care*: greater than 30 min Quality Metrics Clinical Quality Measures [ Acute Myocardial Infaction { Clinical Trial Participant: No; Contraindication to aspirin: None; Aspirin prescribed; Contraindication to statin: None; Statin prescribed; Contraindication to PCI: None; PCI performed;}] Coding Level of Care Code Acute Chg FW DC note Diagnoses ST elevation (STEMI) myocardial infarction I21.3
--- NOTE | 2022-06-02 11:20 | PC.NURSE ---
Prescriptions called into [facility]
--- NOTE | 2022-06-02 11:45 | PC.NURSE ---
Discharge instruction provided and discussed with patient and his daughters. Family/patient to make follow-up appt. Care noted on medications and care after Heart attack provided and discussed. Home medications (3) returned and signed off.
== END 2022-06-02 11:45 | disposition home or self-care (01) | DRG 246 ==
LOC: ER 19:21 → CCL 19:30 → ICU 21:58
PROVIDERS: Admitting Provider Internal Medicine; Emergency Provider Emergency Medicine; Visit Provider Internal Medicine
PROC: 027137Z Dilation of Coronary Artery, Two Arteries with Four or More Drug-eluting Intraluminal Devices, Percutaneous Approach (ICD-10-PCS; principal; 2022-05-31 19:30)
PROC: 027137Z Dilation of Coronary Artery, Two Arteries with Four or More Drug-eluting Intraluminal Devices, Percutaneous Approach (ICD-10-PCS; 2022-05-31 19:30)
DX: I21.02 ST elevation (STEMI) myocardial infarction involving left anterior descending coronary artery (principal); I25.119 Atherosclerotic heart disease of native coronary artery with unspecified angina pectoris
CPT/HCPCS: 36415; 71045; 80048; 80053; 83690; 83880; 84484; 85025; 85347; 85610; 85730; 92978; 93005; 93306; 93454; 96360; 96361; 96374; 99152; 99153; 99285; C1725; C1753; C1769; C1874; C1887; C1894; C9600; C9601; J0461; J1644; J2250; J2405; J3010; J3490; J7030; J7040; Q9967

== ENCOUNTER → 2022-06-12 11:08 | Outpatient (BNVA) | payer MEDICARE, OTHER, SELFPAY | PROVIDERS: Visit Provider Nurse Practitioner Family | DX: I25.10 Atherosclerotic heart disease of native coronary artery without angina pectoris (principal) | CPT/HCPCS: 80048; 99214 ==

== ENCOUNTER 2022-07-18 11:14 | Outpatient (RCR) | payer MEDICARE, OTHER, SELFPAY | END 2022-08-16 23:59 | disposition home or self-care (01) | LOC: CR 11:14 | PROVIDERS: Family Provider Nurse Practitioner Family; PCP Nurse Practitioner Family; Referring Provider Internal Medicine; Visit Provider Internal Medicine | DX: I25.10 Atherosclerotic heart disease of native coronary artery without angina pectoris (principal); I10 Essential (primary) hypertension; Z87.891 Personal history of nicotine dependence | CPT/HCPCS: 99214 ==

== ENCOUNTER → 2023-01-16 14:21 | Outpatient (BNVA) | payer MEDICARE, OTHER, SELFPAY | PROVIDERS: Family Provider Nurse Practitioner Family; PCP Nurse Practitioner Family; Visit Provider Internal Medicine | DX: I25.10 Atherosclerotic heart disease of native coronary artery without angina pectoris (principal); I10 Essential (primary) hypertension; Z87.891 Personal history of nicotine dependence; I25.2 Old myocardial infarction; Z79.82 Long term (current) use of aspirin | CPT/HCPCS: 99214 ==

== ENCOUNTER → 2023-03-10 11:19 | Outpatient (BNVA) | payer MEDICARE, OTHER, SELFPAY | PROVIDERS: Family Provider Nurse Practitioner Family; PCP Nurse Practitioner Family; Visit Provider Specialist | DX: I25.10 Atherosclerotic heart disease of native coronary artery without angina pectoris (principal); I10 Essential (primary) hypertension; E78.5 Hyperlipidemia, unspecified; Z87.891 Personal history of nicotine dependence; Z79.82 Long term (current) use of aspirin | CPT/HCPCS: 93005; 99214 ==

== ENCOUNTER 2023-04-07 06:16 | Outpatient (CLI) | payer MEDICARE, OTHER, SELFPAY ==
--- NOTE | 2023-04-07 | ECG_ITS ---
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 Interpretive Statements NAME OF STUDY: LEXISCAN SESTAMIBI STRESS TEST INDICATION: [Chest Pain] Procedure: At the baseline, the blood pressure was 146/99 mmHg with a heart rate of 60 bpm. The electrocardiogram showed normal sinus rhythm, normal axis with normal ST and T's. The Lexiscan was infused over a period of 20 seconds. A total of 0.4 mg of Lexiscan was infused. The stress phase was continued for a total of 5 minutes. Heart rate was at the end of stress phase was 76 bpm and a blood pressure of 146/92 mmHg. The EKG at the peak infusion revealed normal sinus rhythm with no significant ST-T wave changes. Sestamibi was injected 20 seconds after the Lexiscan infusion. Blood pressure at the end of recovery phase was 139/92 mmHg with a heart rate of 68 bpm. Conclusion: 1. Normal EKG response to Lexiscan infusion 2. No Lexiscan induced chest pain or cardiac arrhythmia. 3. Normal blood pressure and heart rate response. 4. Sestamibi/sestamibi perfusion scan pending; see separate report. Electronically Signed On 05-01-2023 9:19:43 CDT by Anil Hartman M.D. [email or web address].[facility]/store/OM/[id number]
[2023-04-07 06:50] VITALS: BMI 25.7
--- NOTE | 2023-04-07 06:56 | NMCV_ITS ---
NM josé perf SPECT r/s* [id number] Yoshi Chet Age: 83 Gender: M : 1940 Exam Date: 04/07/2023 07:28 Ordering Phys: Tammi Akins MD ([email or web address]) Technologist: GABINO Magallon Exam Location: [facility] Indications: CHEST PAIN, ATHEROSCLEROTIC HEART DISEASE STRESS TEST [facility] IMAGE PROTOCOL Rest/Stress 1 Lexiscan Day Radiopharmaceutical Dose (mCi) Administration Site Administered by Rest: Tc-99m 10.7 IV GABINO Maki Sestamibi Stress:Tc-99m 32.5 IV GABINO Maki Sestamibi Rest: 07-Apr-2023 60 Discovery 630 Stress: 07-Apr-2023 30 Discovery 630 0.4mg Lexiscan. Supine position only as patient was unable to lay prone. SPECT RESULTS Technical Quality: Excellent Raw Data Analysis: Normal Image Corrections: No attenuation or motion correction applied Summed Stress Score: 0 Summed Rest Score: 0 Summed Difference Score: 0 PERFUSION FINDINGS SPECT images demonstrate homogeneous tracer distribution throughout the myocardium. FUNCTIONAL RESULTS (calculated via Gated SPECT) Stress Image LV EF (%): 77 Stress EDV (mL):114 TID: 1.05 Stress ESV (mL):26 FUNCTIONAL FINDINGS: There is normal left ventricular systolic function. IMPRESSIONS 1. Normal myocardial perfusion imaging with no evidence of ischemia 2. LV systolic function is normal Anil Hartman MD (Electronically Signed) Final Date: 08 Apr 2023 09:06 S
[2023-04-07 08:31] VITALS: BP 139/97; PULSE 70
[2023-04-07] MEDS: regadenoson 0.4 Mg/5 ml Syringe IVP (10:30)
== END 2023-04-07 06:17 | disposition home or self-care (01) ==
LOC: CDL 06:17
PROVIDERS: PCP Nurse Practitioner Family; Visit Provider Specialist
DX: R07.9 Chest pain, unspecified (principal)
CPT/HCPCS: 36415; 78452; 93017; 96374; A9500; J2785

== ENCOUNTER → 2023-07-24 14:26 | Outpatient (BNVA) | payer MEDICARE, OTHER, SELFPAY | PROVIDERS: PCP Nurse Practitioner Family; Visit Provider Internal Medicine | DX: I25.10 Atherosclerotic heart disease of native coronary artery without angina pectoris (principal); I10 Essential (primary) hypertension; Z87.891 Personal history of nicotine dependence | CPT/HCPCS: 99214 ==

== ENCOUNTER → 2024-01-21 14:43 | Outpatient (BNVA) | payer MEDICARE, OTHER, SELFPAY | PROVIDERS: PCP Nurse Practitioner Family; Visit Provider Internal Medicine | DX: I25.10 Atherosclerotic heart disease of native coronary artery without angina pectoris (principal); I10 Essential (primary) hypertension; Z87.891 Personal history of nicotine dependence | CPT/HCPCS: 99214 ==

== ENCOUNTER → 2024-03-02 07:44 | Outpatient (BNVA) | payer MEDICARE, OTHER, SELFPAY | PROVIDERS: PCP Nurse Practitioner Family; Visit Provider Podiatrist Foot & Ankle Surgery | DX: M19.071 Primary osteoarthritis, right ankle and foot; M19.072 Primary osteoarthritis, left ankle and foot; M20.11 Hallux valgus (acquired), right foot; M20.12 Hallux valgus (acquired), left foot; M20.41 Other hammer toe(s) (acquired), right foot; M20.42 Other hammer toe(s) (acquired), left foot; M21.6X1 Other acquired deformities of right foot; M21.6X2 Other acquired deformities of left foot | CPT/HCPCS: 73630; 99203 ==

== ENCOUNTER 2024-04-07 16:49 | Outpatient (CLI) | payer MEDICARE, OTHER, SELFPAY | END 2024-04-07 16:50 | disposition home or self-care (01) | LOC: SPT 16:50 | PROVIDERS: PCP Nurse Practitioner Family; Visit Provider Podiatrist Foot & Ankle Surgery | DX: Z46.89 Encounter for fitting and adjustment of other specified devices (principal); M79.671 Pain in right foot; M20.41 Other hammer toe(s) (acquired), right foot; M20.42 Other hammer toe(s) (acquired), left foot | CPT/HCPCS: L3030 ==

== ENCOUNTER 2024-05-25 07:06 | Outpatient (CLI) | payer MEDICARE, OTHER, SELFPAY ==
[2024-05-25 07:30] VITALS: BMI 25.7
--- NOTE | 2024-05-25 07:33 | ECG_ITS ---
[facility] Test Date: 2024-05-25 Pat Name: Chet Belle Department: Room: Gender: Male Academic Guidance Specialist: Sandra Briones : 1940 Requested By: Treva Snigh Order Number: [id number] Reji MD: Anil Hartman M.D. Interpretive Statements NAME OF STUDY: LEXISCAN SESTAMIBI STRESS TEST INDICATION: [Chest Pain; Shortness of Breath, ] Procedure: At the baseline, the blood pressure was 147/92 mmHg with a heart rate of 61 bpm. The electrocardiogram showed normal sinus rhythm, normal axis with normal ST and T's. The Lexiscan was infused over a period of 20 seconds. A total of 0.4 mg of Lexiscan was infused. The stress phase was continued for a total of 5 minutes. Heart rate was at the end of stress phase was 80 bpm and a blood pressure of 150/88 mmHg. The EKG at the peak infusion revealed normal sinus rhythm with no significant ST-T wave changes. Sestamibi was injected 20 seconds after the Lexiscan infusion. Blood pressure at the end of recovery phase was 150/88 mmHg with a heart rate of 81 bpm. Conclusion: 1. Normal EKG response to Lexiscan infusion 2. No Lexiscan induced chest pain or cardiac arrhythmia. 3. Normal blood pressure and heart rate response. 4. Sestamibi/sestamibi perfusion scan pending; see separate report. Electronically Signed On 06-11-2024 14:01:56 CDT by Anil Hartman M.D. [email or web address]
--- NOTE | 2024-05-25 07:34 | NMCV_ITS ---
NM josé perf SPECT r/s* [id number] hCet Belle Age: 84 Gender: M : 1940 Exam Date: 05/25/2024 07:34 Ordering Phys: Treva Singh Technologist: GABINO Maki Exam Location: [facility] Indications: CP, SOB STRESS TEST Please see separate stress test report in [facility] for full findings IMAGE PROTOCOL Rest/Stress 1 Lexiscan Day Radiopharmaceutical Dose (mCi) Administration Site Administered by Rest: Tc-99m 10.7 IV GABINO Maki Stress:Tc-99m 32.5 IV GABINO Maki Rest: 25-May-2024 60 Discovery 630 Stress: 25-May-2024 30 Discovery 630 0.4mg Lexiscan. Supine position only as patient was unable to lay prone. SPECT RESULTS Technical Quality: Excellent Raw Data Analysis: Normal Image Corrections: No attenuation or motion correction applied Summed Stress Score: 0 Summed Rest Score: 0 Summed Difference Score: 0 PERFUSION FINDINGS SPECT images demonstrate homogeneous tracer distribution throughout the myocardium. FUNCTIONAL RESULTS (calculated via Gated SPECT) Stress Image LV EF (%): 67 Stress EDV (mL):114 TID: 1.39 Stress ESV (mL):38 FUNCTIONAL FINDINGS: There is normal left ventricular systolic function. TID ratio is elevated. IMPRESSIONS 1. Normal myocardial perfusion imaging with no evidence of ischemia. 2. LV systolic function is normal 3. TID ratio is elevated. In absense of any signficant perfusion defect, signficiance of this finding is equivocal. Anil Hartman MD (Electronically Signed) Final Date: 25 May 2024 11:16 S
[2024-05-25] MEDS: regadenoson 0.4 Mg/5 ml Syringe IVP (09:20)
[2024-05-25 09:30] VITALS: BP 150/89; PULSE 79
== END 2024-05-25 07:07 | disposition home or self-care (01) ==
PROVIDERS: PCP Nurse Practitioner Family; Visit Provider Nurse Practitioner Family
DX: R07.9 Chest pain, unspecified (principal); R06.02 Shortness of breath; R94.39 Abnormal result of other cardiovascular function study
CPT/HCPCS: 36415; 78452; 93017; 96374; A9500; J2785

== ENCOUNTER → 2024-07-28 12:56 | Outpatient (BNVA) | payer MEDICARE, OTHER, SELFPAY | PROVIDERS: PCP Nurse Practitioner Family; Visit Provider Internal Medicine | DX: I25.10 Atherosclerotic heart disease of native coronary artery without angina pectoris (principal); M79.89 Other specified soft tissue disorders; I10 Essential (primary) hypertension; Z87.891 Personal history of nicotine dependence | CPT/HCPCS: 99214 ==

== ENCOUNTER 2024-08-06 16:15 | Outpatient (CLI) | payer MEDICARE, OTHER, SELFPAY ==
--- NOTE | 2024-08-06 17:00 | USCV_ITS ---
Chet Belle Age: 84 Gender: M : 1940 Exam Date: 08/06/2024 16:22 Ordering Phys: Anil Hartman M.D ([email or web address]) Technologist: [place] [facility] [place]: [place] PROCEDURES: Venous duplex imaging was performed in only the right lower extremity. On the right side, the common femoral, superficial femoral, profunda femoral, popliteal, posterior tibial, greater saphenous veins and the peroneal trunk were identified and interrogated in the standard fashion. These veins were found to be easily compressible with spontaneous blood flow. No evidence of insufficiency or thrombus noted. FINDINGS: normal us CONCLUSIONS No evidence of right lower extremity DVT. Jose Manuel Crane MD (Electronically Signed) Final Date: 06 August 2024 17:01 S
== END 2024-08-06 16:16 | disposition home or self-care (01) ==
LOC: RAD 16:15
PROVIDERS: PCP Nurse Practitioner Family; Visit Provider Internal Medicine
DX: M79.89 Other specified soft tissue disorders (principal)
CPT/HCPCS: 93971

== ENCOUNTER 2024-08-09 16:15 | Outpatient (CLI) | payer MEDICARE, OTHER, SELFPAY ==
--- NOTE | 2024-08-09 16:45 | US_ITS ---
WS: [id number] ULTRASOUND SOFT TISSUES RIGHT lower extremity HISTORY: swelling COMPARISON: None available. TECHNIQUE: 2-D and color Doppler imaging is submitted. Ultrasound is performed in the RIGHT lower extremity over the calf as directed by the patient. There is soft tissue edema and swelling but no mass. No focal collection or abscess. US/US soft tissue/extremity [id number] IMPRESSION: Soft tissue edema along the RIGHT calf but no mass. No abscess.
== END 2024-08-09 16:16 | disposition home or self-care (01) ==
LOC: RAD 16:15
PROVIDERS: PCP Nurse Practitioner Family; Visit Provider Internal Medicine
DX: M79.89 Other specified soft tissue disorders (principal); R60.9 Edema, unspecified
CPT/HCPCS: 76882

== ENCOUNTER → 2025-02-01 15:11 | Outpatient (BNVA) | payer MEDICARE, OTHER, SELFPAY | PROVIDERS: PCP Nurse Practitioner Family; Visit Provider Internal Medicine | DX: I25.10 Atherosclerotic heart disease of native coronary artery without angina pectoris (principal); I10 Essential (primary) hypertension; I25.2 Old myocardial infarction; Z87.891 Personal history of nicotine dependence | CPT/HCPCS: 99214 ==

== ENCOUNTER → 2025-11-01 14:47 | Outpatient (BNVA) | payer MEDICARE, OTHER, SELFPAY | PROVIDERS: PCP Electrodiagnostic Medicine; Visit Provider Internal Medicine | DX: I25.10 Atherosclerotic heart disease of native coronary artery without angina pectoris (principal); I10 Essential (primary) hypertension; Z87.891 Personal history of nicotine dependence | CPT/HCPCS: 99214 ==